=== PATIENT | female | born 1955 | race Caucasian/White ===

== ENCOUNTER 2024-07-24 06:11 | Day surgery (SDC) | payer MEDICARE, SELFPAY ==
[2024-07-24] VITALS (22 sets, daily range): BP systolic 84–130; BP diastolic 31–90; PULSE 62–86; RESP 12–24; TEMP 36.1–37.1; O2SAT 90–95; BMI 36.8
[2024-07-24] MEDS: SODIUM CHLORIDE 0.9 % (FLUSH) 10 ML SYRINGE IVF (06:45)
[2024-07-24] MEDS: LACTATED RINGERS 1000 ML 1,000 ML 100 ML IV ×2 (06:45→10:21)
--- NOTE | 2024-07-24 07:12 | W.PM.H&PU ---
History & Physical Update History & Physical Update H&P Reviewed and patient assessed: No changes noted
--- NOTE | 2024-07-24 07:12 | PM.ORPRC ---
Procedure Note Date of procedure: 07/24/24 Procedure: PREOPERATIVE DIAGNOSES: 1. Left shoulder rotator cuff tear. 2. Left shoulder subacromial impingement syndrome. POSTOPERATIVE DIAGNOSES: 1. Left shoulder rotator cuff tear - supraspinatus 2. Left shoulder subacromial impingement syndrome. NAME OF OPERATION: 1. Left shoulder arthroscopic rotator cuff repair. 2. Left shoulder arthroscopic bursectomy, subacromial decompression/partial acromioplasty. SURGEON: Ned Joseph MD [employer] SUPERVISOR: Sharifa Ferrer P.A.-C.. An shampoo assistant was critical for this case to aide in patient positioning, suture manipulation, arm positioning, instrument positioning, and wound closure. ANESTHESIA: General plus preoperative supraclavicular block. IMPLANTS: Arthrex 2.6 mm FiberTak anchor and 4.75 mm BioComposite SwiveLock anchor COMPLICATIONS: None ESTIMATED BLOOD LOSS: 5 mL INDICATIONS: The patient is a pleasant, 69-year-old female who has experienced left shoulder pain that has been increasing in recent time. Physical exam and imaging were consistent with a rotator cuff tear. Given these findings, as well as the weakness and pain, and failure to improve with nonoperative management, recommendation was made for surgery. FINDINGS: Exam under anesthesia revealed stable shoulder with full range of motion. The diagnostic arthroscopy revealed healthy chondral surface of the glenohumeral joint. The Subscapularis tendon was intact. The long head of the biceps tendon was intact. The rotator cuff tendon was found to be torn full thickness at the anterior margin measuring approximately 1.2 cm in the anterior-posterior direction. The labrum was degenerative fraying in the anterior and superior aspect. No loose bodies were identified within the pouch or subscapularis recess. PROCEDURE: Following a thorough discussion of risks, benefits, and alternatives, consent was obtained and the operative shoulder was marked. A supraclavicular nerve block was performed by anesthesia staff in preop holding. The patient was brought to the operating room and placed supine on the operating table. Induction of anesthesia was completed, and patient was given 2 g IV Ancef preoperatively for prophylaxis. A surgical time-out was performed confirming patient identity, surgical site, and procedure. Patient was placed into the beach chair position. Head was placed in padded balance screwhead polisher in neutral alignment, and all bony prominences were well padded. The operative shoulder and upper extremity were prepped and draped in the appropriate sterile fashion using ChloraPrep. The glenohumeral joint was injected with 40 mL of normal saline using and 18g spinal needle from a posterior approach. Posterior portal was established. Anterior portal was established after localization with a spinal needle and a 7.0 mm cannula was placed here. Diagnostic arthroscopy was then performed with findings as noted above.. The shaver was then inserted and allowed debridement of the anterior superior labrum. The anterior supraspinatus tear was identified. Frayed cuff tissue was debrided with a shaver. The camera was then moved to the subacromial space. A lateral portal was established after localization of spinal needle. Subacromial bursectomy was performed using arthroscopic shaver. Partial acromioplasty was then performed using the bone-cutting shaver. Attention was then directed to the rotator cuff repair. A passport cannulas placed into the lateral portal. The margins of the tear were debrided, and the greater tuberosity was debrided and lightly decorticated with the bone-cutting shaver. A small stab incision was then placed off the lateral aspect of the acromion. Through this incision a 2.6 mm FiberTak anchor was placed into the medial aspect of the exposed rotator cuff footprint. The [employer] suture Passer was then used to pass all 4 sutures of this anchor independently through the rotator cuff. These 4 sutures were then placed into a single 4.75 mm BioComposite SwiveLock anchor which was placed lateral to the rotator cuff footprint. Sutures were a tensioned, and SwiveLock anchor was secured into position. The shoulder was placed through range of motion and found to be stable. The rotator cuff was re-probed and found to be stable. Remnant sutures were cut and removed. Arthroscopic instruments and cannulas were then removed. Excess fluid was drained, closure performed with 3-0 nylon simple interrupted sutures. Sterile dressing were applied followed by application of an abduction sling. The patient was then rotated into the supine position, awoken from anesthesia, and transferred to the PACU in stable condition. PLAN: 1. Discharged to home day of surgery. 2. Ice for pain and swelling. 3. Tylenol and oxycodone as needed for pain control. 4. Abduction sling at all times except for ROM and showering. -Remove sling several times daily for pendulum exercises finger, wrist, and elbow range of motion. 5. Follow-up in orthopedic clinic in 10-14 days for wound check and suture removal. 6. Will initiate formal physical therapy 2 weeks postoperatively per the standard rotator cuff repair protocol.
[2024-07-24] MEDS: fentaNYL 100 MCG/2 ML inj IVP (07:13)
[2024-07-24] MEDS: MIDAZOLAM HCL 1 MG/ML inj IVP (07:13)
--- NOTE | 2024-07-24 07:19 | SUR.PREOP ---
TIME?OUT:?711 PT/RN/MDA?VERIFICATION?OF?SURGICAL?SITE,?PROCEDURE,?AND?CONSENT OBTAINED?PRIOR?TO?INVASIVE?PROCEDURE.
--- NOTE | 2024-07-24 07:31 | P.NB_ITS ---
Nerve Block Nerve Block Time Seen by Provider: 07:15 Date Seen: 07/24/24 Type of block requested by surgeon for post-operative analgesia: supraclavicular Side: left Time out performed: Yes Verification of patient name: Yes Verification of date of : Yes Site marking: site marked Name of person performing procedure: Guilherme Continuous monitoring Was continuous monitoring of O2 sat, B/P, derrick helper, recorded every 15 minutes?: Yes Procedure Checklist: sterile prep, needles and gloves Ultrasound guided. Images saved: Yes Medications given in 5ml increments after negative aspiration: Ropivicaine %: 0.5 mL: 20 Needle gauge: 22 Precedex (mcg): 25 Patient tolerated procedure well: Yes Block Charges Block Charge (with Pro Fee): Brachial Plexus Use of Ultrasound Machine for Block: Yes- US Guidance/pain block
[2024-07-24] MEDS: CEFAZOLIN 1 GM inj IVP (08:01)
[2024-07-24] MEDS: EPINEPHrine 1 MG in SODIUM CHLORIDE IRRIG SOLUTION 3,000 ML 3001 MG IRRIGATION ×2 (08:08→08:48)
[2024-07-24] MEDS: LIDOCAINE 1%-EPI 1:100,000 20 ML INFILTRATI (08:11)
--- NOTE | 2024-07-24 09:30 | P.ANES_ITS ---
Anesthesia Charges Start Date/Time Anesthesia Start Date: 07/24/24 Anesthesia Start Time: 07:28 Stop Date/Time Anesthesia Stop Date: 07/24/24 Anesthesia Stop Time: 09:29 Coding CPT Codes CPT Codes: ANESTH SURGERY OF SHOULDER - 80086 ([id number]) P2 - PATIENT W/MILD SYST DISEASE, QK - ASSOCIATE PROFESSOR COMPUTER SCIENCE 2-4 CNCRNT ANES PROC, QX - CARTRIDGE LOADER SVC W/ MD MED DIRECTION
--- NOTE | 2024-07-24 09:30 | W.ANESCHARGE ---
Anesthesia Charges Start Date/Time Anesthesia Start Date: 07/24/24 Anesthesia Start Time: 07:28 Stop Date/Time Anesthesia Stop Date: 07/24/24 Anesthesia Stop Time: 09:29 Coding CPT Codes CPT Codes: ANESTH SURGERY OF SHOULDER - 12295 ([id number]) P2 - PATIENT W/MILD SYST DISEASE, QK - VIRTUAL RECRUITER 2-4 CNCRNT ANES PROC, QX - GEAR TESTER SVC W/ MD MED DIRECTION
--- NOTE | 2024-07-24 10:05 | SUR.PHASEI ---
patient met discharge criteria per anesthesia
--- NOTE | 2024-07-24 11:16 | P.ANES_ITS ---
Anesthesia Charges Start Date/Time Anesthesia Start Date: 07/24/24 Anesthesia Start Time: 07:28 Stop Date/Time Anesthesia Stop Date: 07/24/24 Anesthesia Stop Time: 09:29 Coding CPT Codes CPT Codes: ANESTH SURGERY OF SHOULDER - 30267 ([id number]) QK - MACHINE SIZER 2-4 CNCRNT ANES PROC, QX - DEPUTY COURT SVC W/ MD MED DIRECTION, P2 - PATIENT W/MILD SYST DISEASE
--- NOTE | 2024-07-24 11:16 | W.ANESCHARGE ---
Anesthesia Charges Start Date/Time Anesthesia Start Date: 07/24/24 Anesthesia Start Time: 07:28 Stop Date/Time Anesthesia Stop Date: 07/24/24 Anesthesia Stop Time: 09:29 Coding CPT Codes CPT Codes: ANESTH SURGERY OF SHOULDER - 88763 ([id number]) QK - AVAYA ENGINEER 2-4 CNCRNT ANES PROC, QX - POLE FRAMER MACHINE SVC W/ MD MED DIRECTION, P2 - PATIENT W/MILD SYST DISEASE
[2024-07-24] MEDS: OxyCODONE/APAP 5-325 TABLET PO (11:40)
== END 2024-07-24 12:40 | disposition home or self-care (01) ==
PROVIDERS: PCP Nurse Practitioner; Visit Provider Orthopaedic Surgery
PROC: (CPT 29805; principal; 2024-07-24 07:30)
DX: S46.012A Strain of muscle(s) and tendon(s) of the rotator cuff of left shoulder, initial encounter (principal); M75.42 Impingement syndrome of left shoulder; G89.18 Other acute postprocedural pain; E66.9 Obesity, unspecified; Z68.36 Body mass index [BMI] 36.0-36.9, adult; R73.03 Prediabetes; N18.2 Chronic kidney disease, stage 2 (mild)
CPT/HCPCS: 29827; 29826; 01630; 64415; 76942; A9270; C1713; J0171; J0690; J1100; J2250; J2371; J2704; J2710; J2795; J3010; J7120; L3670